=== PATIENT | female | born 1945 | race Caucasian/White ===

== ENCOUNTER → 2023-10-07 16:49 | Outpatient (REF) | payer MEDICARE, OTHER, SELFPAY | LOC: RAD 16:49 | PROVIDERS: ATTENDING PHYSICIAN Internal Medicine; FAMILY PHYSICIAN Family Medicine | DX: M54.50 Low back pain, unspecified (principal); Z91.81 History of falling | CPT/HCPCS: 72100 ==

== ENCOUNTER → 2023-12-14 14:04 | Outpatient (REF) | payer MEDICARE, OTHER, SELFPAY | LOC: HWWDC 14:04 | PROVIDERS: ATTENDING PHYSICIAN Internal Medicine; FAMILY PHYSICIAN Internal Medicine | DX: Z12.31 Encounter for screening mammogram for malignant neoplasm of breast (principal); M81.0 Age-related osteoporosis without current pathological fracture | CPT/HCPCS: 77063; 77067; 77080 ==

== ENCOUNTER → 2024-01-04 13:49 | Outpatient (REF) | payer MEDICARE, OTHER, SELFPAY | LOC: PAVMRI 13:49 | PROVIDERS: ATTENDING PHYSICIAN Physician Assistant; FAMILY PHYSICIAN Family Medicine | DX: M47.816 Spondylosis without myelopathy or radiculopathy, lumbar region (principal); M54.50 Low back pain, unspecified | CPT/HCPCS: 72148 ==

== ENCOUNTER → 2024-01-09 13:09 | Outpatient (REF) | payer MEDICARE, OTHER, SELFPAY | LOC: HWRAD 13:09 | PROVIDERS: ATTENDING PHYSICIAN Internal Medicine; FAMILY PHYSICIAN Family Medicine | DX: R79.89 Other specified abnormal findings of blood chemistry (principal) | CPT/HCPCS: 76536 ==

== ENCOUNTER → 2024-02-06 12:20 | Outpatient (REF) | payer MEDICARE, OTHER, SELFPAY | LOC: HWCARD 12:20 | PROVIDERS: ATTENDING PHYSICIAN Pain Medicine Interventional Pain Medicine; FAMILY PHYSICIAN Family Medicine | DX: Z01.818 Encounter for other preprocedural examination (principal) | CPT/HCPCS: 93005 ==

== ENCOUNTER → 2024-04-02 16:38 | Outpatient (REF) | payer MEDICARE, OTHER, SELFPAY ==
[2024-04-02 17:49] LABS: Erythrocyte Sed Rate 15 mm/hour (0-20)
[2024-04-02 18:19] LABS: Vitamin D, 25-OH*** 24.8 ng/mL (30-80)
[2024-04-03 10:59] LABS: CRP, Highly Sensitive 1.39 mg/L
== END ==
LOC: REG 16:38
PROVIDERS: ATTENDING PHYSICIAN Internal Medicine; FAMILY PHYSICIAN Family Medicine; OTHER PHYSICIAN Nurse Practitioner
DX: M81.0 Age-related osteoporosis without current pathological fracture (principal); R19.7 Diarrhea, unspecified; Z78.9 Other specified health status
CPT/HCPCS: 36415; 82306; 82653; 83993; 85652; 86141

== ENCOUNTER → 2024-11-20 16:06 | Outpatient (REF) | payer MEDICARE, OTHER, SELFPAY | LOC: RCS 16:06 | PROVIDERS: ATTENDING PHYSICIAN Pain Medicine Interventional Pain Medicine; FAMILY PHYSICIAN Family Medicine | DX: Z01.818 Encounter for other preprocedural examination (principal) | CPT/HCPCS: 93005 ==

== ENCOUNTER → 2025-01-21 16:23 | Outpatient (REF) | payer MEDICARE, OTHER, SELFPAY | LOC: WDC 16:23 | PROVIDERS: ATTENDING PHYSICIAN Nurse Practitioner Adult Health | DX: Z12.31 Encounter for screening mammogram for malignant neoplasm of breast (principal) | CPT/HCPCS: 77063; 77067 ==

== ENCOUNTER → 2025-02-08 12:21 | Outpatient (REF) | payer MEDICARE, OTHER, SELFPAY ==
[2025-02-08 16:11] LABS: Hematocrit 36.8 % (37.0-47.0); Hemoglobin 12.4 g/dL (12.0-16.0); Mean Corp Hgb Conc. 33.7 g/dL (33.0-37.0); Mean Corpuscular Volume 97.1 fL (81.0-99.0); Nucleated Red Blood Cells % 0 %; Platelet Count 288 10^3/uL (130-400); Red Cell Dist. Width 13.1 % (11.5-14.5)
[2025-02-08 16:35] LABS: ALT (SGPT) 45 U/L (0-35); AST (SGOT) 39 U/L (14-36); Albumin 4.2 g/dl (3.5-5.0); Alkaline Phosphatase 53 U/L (38-126); Blood Urea Nitrogen 18 mg/dl (7-17); Calcium 9.6 mg/dl (8.4-10.2); Carbon Dioxide 27 mmol/L (22-30); Chloride 106 mmol/L (98-107); Glucose 103 mg/dl (70-99); Iron 99 ug/dl (37-170); Potassium 3.9 mmol/L (3.5-5.1); Sodium 139 mmol/L (135-145); Total Protein 6.7 g/dl (6.3-8.2); eGFR > 60.00
[2025-02-08 16:45] LABS: Total Iron Binding Capacity 292 ug/dl (265-497)
[2025-02-08 17:07] LABS: Hepatitis B Surface Antigen Negative (Negative)
[2025-02-08 17:12] LABS: Ferritin 104.0 ng/ml (11.1-264.0)
[2025-02-08 17:24] LABS: Hepatitis A Antibody, Total Positive (Negative); Hepatitis C Antibody Negative (Negative)
== END ==
LOC: HWRAD 12:21
PROVIDERS: ATTENDING PHYSICIAN Nurse Practitioner Adult Health
DX: R79.89 Other specified abnormal findings of blood chemistry (principal); M32.13 Lung involvement in systemic lupus erythematosus; I10 Essential (primary) hypertension
CPT/HCPCS: 36415; 76700; 80053; 82728; 83540; 83550; 85025; 86038; 86704; 86706; 86708; 86803; 87340

== ENCOUNTER → 2025-03-11 16:08 | Outpatient (REF) | payer MEDICARE, OTHER, SELFPAY | LOC: MRI 3T 16:08 | PROVIDERS: ATTENDING PHYSICIAN Physician Assistant; FAMILY PHYSICIAN Nurse Practitioner Adult Health; REFERRING PHYSICIAN Pain Medicine Interventional Pain Medicine | DX: M54.16 Radiculopathy, lumbar region (principal) | CPT/HCPCS: 72148 ==

== ENCOUNTER → 2025-03-27 13:04 | Outpatient (REF) | payer MEDICARE, OTHER, SELFPAY | LOC: HWRAD 13:04 | PROVIDERS: ATTENDING PHYSICIAN Physician Assistant; FAMILY PHYSICIAN Nurse Practitioner Adult Health | DX: M54.50 Low back pain, unspecified (principal); M79.89 Other specified soft tissue disorders | CPT/HCPCS: 76705 ==